=== PATIENT | female | born 1960 | race Caucasian/White ===

== ENCOUNTER 2017-01-18 13:22 | Observation (INO) | payer MEDICAID, OTHER ==
[~2017-01-18] VITALS: Ht 167.6 cm; Wt 106.6 kg
[2017-01-18 13:59] LABS: Basophils # (auto) 0 uL; Basophils % (auto) 0.7 % (0.0-2.0); CONDITION Y; Eosinophils # (auto) 0.2 uL; Hematocrit 40.3 % (36.0-46.0); Hemoglobin 13.7 g/dL (12.2-16.2); Lymphocytes % (auto) 39.7 % (10.0-50.0); Mean Corpuscular Hgb Conc. 33.9 g/dL (32.0-36.0); Mean Corpuscular Volume 91.4 fL (80.0-100.0); Mean Platelet Volume 8.6 fL (7.4-10.4); Monocytes # (auto) 0.3 uL; Monocytes % (auto) 6.9 % (0.0-12.0); Neutrophils # (auto) 2.5 uL; Neutrophils % (auto) 48.7 % (37.0-80.0); Platelet Count (auto) 238 10^3/uL (140-450); Red Cell Distribution Width 13.9 % (11.6-16.0); White Blood Cell 5.1 10^3/uL (4.4-10.8)
[2017-01-18 14:16] LABS: Albumin 3.6 g/dL (3.4-5.0); BUN/Creatinine Ratio 29.7; Calcium 8.7 mg/dL (8.5-10.1)
[2017-01-18 14:19] LABS: Bilirubin, Total 0.4 mg/dL (0.2-1.0); Potassium 2.8 mmol/L (3.5-5.1); Total Protein 6.7 g/dL (6.4-8.2)
[2017-01-18] MEDS ORDERED: POTASSIUM CHL 20 Meq TABLET PO ONE ×2 (14:30)
[2017-01-18 14:46] LABS: INR 1.04 (0.9-1.15); Prothrombin Time 11.3 sec (9.37-12.3)
[2017-01-18 19:10] VITALS: BP 127/88
== END 2017-01-18 20:14 | disposition home or self-care (01) | DRG 384 ==
LOC: ER 13:33 → OVERFLOW 14:16 → ER 20:14
PROVIDERS: ADMIT Family Medicine; ATTEND Family Medicine
DX: S20.212A Contusion of left front wall of thorax, initial encounter (principal); E87.6 Hypokalemia; F17.210 Nicotine dependence, cigarettes, uncomplicated; Z82.49 Family history of ischemic heart disease and other diseases of the circulatory system; Z83.3 Family history of diabetes mellitus; W19.XXXA Unspecified fall, initial encounter; Y93.89 Activity, other specified; Y92.89 Other specified places as the place of occurrence of the external cause; Y99.8 Other external cause status; Z85.42 Personal history of malignant neoplasm of other parts of uterus; Z90.710 Acquired absence of both cervix and uterus
CPT/HCPCS: 36415; 70450; 71101; 71250; 80053; 83735; 84132; 84484; 85025; 85610; 85730; 93005; 99285; G0378